=== PATIENT | female | born 1960 | race Caucasian/White ===

== ENCOUNTER 2019-06-02 18:36 | Emergency (ER) | payer MEDICAID ==
[~2019-06-02] VITALS: Ht 157.5 cm; Wt 90.7 kg
[2019-06-02 19:15] VITALS: BP_SYST 117
--- NOTE | 2019-06-02 19:15 | NUR ---
Patient triaged and placed in waiting room. VSS and patient appears in no acute distress at this time. Accompanied by FAM MEMBER, awaiting available bed, and MD notified of need for MSE.
--- NOTE | 2019-06-02 20:52 | NUR ---
Pt c/o non-productive cough, H/A, dizziness, and pain to abdomen with coughing x 2 days. Denies fever.
--- NOTE | 2019-06-02 20:52 | NUR ---
Patient to ER bed 5 to gown for evaluation. Side rails up. Report given to Vince ARGUETA.
--- NOTE | 2019-06-02 20:55 | NUR ---
Dr. Danielson at bedside.
--- NOTE | 2019-06-02 21:00 | NUR ---
Specimen collected from right nare for influenza antigen and sent to lab.
[2019-06-02 22:10] VITALS: BP_SYST 136
== END 2019-06-02 21:00 | disposition home or self-care (01) ==
LOC: SED 18:36
DX: J06.9 Acute upper respiratory infection, unspecified (principal)
CPT/HCPCS: 36415; 86710; 99283

== ENCOUNTER 2020-09-21 17:34 | Emergency (ER) | payer MEDICAID ==
[~2020-09-21] VITALS: Ht 157.5 cm; Wt 89.8 kg
[2020-09-21 17:50] VITALS: BP_SYST 161
--- NOTE | 2020-09-21 17:50 | NUR ---
Patient to ER bed 3 to gown for evaluation. Side rails up.
--- NOTE | 2020-09-21 18:00 | NUR ---
pt arrives w/ a blister/wound to the bottom of the right fifth toe x 3 days. Pt also arrives with pain 7/10 to the right axillary area that began approx 3 weeks ago.
--- NOTE | 2020-09-21 18:05 | NUR ---
LOBO Del Valle at bedside examining patient.
--- NOTE | 2020-09-21 18:28 | NUR ---
current accu check is [id number]
[2020-09-21 18:42] VITALS: BP_SYST 161
--- NOTE | 2020-09-21 18:43 | NUR ---
Patient given written and verbal discharge instructions and verbalizes understanding. ER MD discussed with patient the results and treatment provided. Patient in stable condition. ID arm band removed. Patient educated on pain management and to follow up with PMD. Pain Scale 0/10. Opportunity for questions provided and answered. Medication side effect fact sheet provided.
== END 2020-09-21 18:43 | disposition home or self-care (01) ==
LOC: SED 17:34
DX: S90.421A Blister (nonthermal), right great toe, initial encounter (principal); N61.0 Mastitis without abscess; E11.65 Type 2 diabetes mellitus with hyperglycemia; I10 Essential (primary) hypertension; E11.9 Type 2 diabetes mellitus without complications; K21.9 Gastro-esophageal reflux disease without esophagitis; X58.XXXA Exposure to other specified factors, initial encounter; Y93.89 Activity, other specified; Y92.89 Other specified places as the place of occurrence of the external cause; Y99.8 Other external cause status
CPT/HCPCS: 82962; 99282